=== PATIENT | female | born 1990 | race Caucasian/White ===

== ENCOUNTER 2017-07-11 13:25 | Emergency (ER) | payer SELFPAY ==
[2017-07-11 13:51] VITALS: BP 137/102; PULSE 97; RESP 14; TEMP 98.5; O2SAT 98
[2017-07-11] MEDS ORDERED: PROCHLORPERAZINE INJ 10 MG/2 ML VIAL IV PUSH ONE (14:00)
[2017-07-11] MEDS ORDERED: diphenhydrAMINE HCL 50 MG/ML VIAL IV PUSH ONE (14:00)
--- NOTE | 2017-07-11 14:20 | PD ---
HPI . Headache Chief Complaint: Headache Time Seen by Provider: 13:48 Travel History International Travel<30 days: No Contact w/Intl Traveler<30days: No Traveled to known affect area: No History of Present Illness HPI Patient presents with chief complaint of a headache. Onset was 3 weeks ago. She states that the head pain will be in various places depending upon the day. She describes it as a throbbing pain and rates it at 9/10. She states that her symptoms are minimally relieved with Tylenol and ibuprofen. She denies any associated symptoms such as fever, blurred vision, vomiting. There was nothing new or different about her head pain today that brought her to the hospital. PFSH Past Medical History Asthma: Yes Anxiety: Yes Depression: Yes Musculoskeletal: Yes (OA, bursitis) Thyroid Disease: Yes Influenza Vaccination: No ?: Not LMP: 07/02/2017 : 4 Para: 2 Past Surgical History Cholecystectomy: Yes Social History Alcohol Use: No Tobacco Use: Yes (06/23 ppd) Substance Use: No Allergies-Medications (Allergen,Severity, Reaction): Coded Allergies: fluoxetine (Verified Allergy, Severe, Swelling, 07/11/17) Reported Meds & Prescriptions Reported Meds & Active Scripts Active No Active Prescriptions or Reported Medications Review of Systems Except as stated in HPI: all other systems reviewed are Neg HENT: Positive: Headaches Physical Exam Narrative GENERAL: Awake and alert and in no acute distress. Using the FLACC behavioral pain scale, her pain level is 1/10. She grimaced when I palpated her scalp. SKIN: Warm and dry. HEAD: Normocephalic/atraumatic. Positive scalp tenderness. EYES: Pupils are equal. Extraocular movements are intact. NECK: Normal range of motion. Supple. CARDIOVASCULAR: Regular rate and rhythm. RESPIRATORY: Nonlabored respirations. MUSCULOSKELETAL: Atraumatic. NEUROLOGICAL: A and O 3. Cranial nerves II through XII are grossly intact. 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 Mmdwsm-npuc-maccae exam is intact bilaterally. PSYCHIATRIC: Appropriate mood and affect. Data Data Last Documented VS Vital Signs Date Time Temp Pulse Resp B/P (MAP) Pulse Ox O2 Delivery O2 Flow Rate FiO2 07/11/17 13:51 98.5 97 14 137/102 (114) 98 Room Air Orders Orders ^ Saline Lock (07/11/17 13:50) Diphenhydramine Inj (Benadryl Inj) (07/11/17 14:00) Prochlorperazine Inj (Compazine Inj) (07/11/17 14:00) MDM Medical Decision Making Medical Screen Exam Complete: Yes Emergency Medical Condition: Yes Differential Diagnosis Differential diagnosis of headache includes but is not limited to migraine, muscle contraction headache, brain tumor, brain bleed Narrative Course This patient presents with a 3 week history of headache. I will treat her with IV Compazine and Benadryl and then discharge her to home. She has no fever and no focal neurological findings. Diagnosis Primary Impression: Headache Qualified Codes: G44.229 - Chronic tension-type headache, not intractable Patient Instructions: Acute Headache (DC), General Instructions Scripts No Active Prescriptions or Reported Meds Disposition: 01 DISCHARGE HOME Condition: Stable Kenyatta Pulido MD Jul 11, 2017 14:20
== END 2017-07-11 14:30 | disposition home or self-care (01) ==
LOC: NEPD 13:25
DX: G44.229 Chronic tension-type headache, not intractable (principal); F32.9 Major depressive disorder, single episode, unspecified; F41.9 Anxiety disorder, unspecified; J45.909 Unspecified asthma, uncomplicated; M19.90 Unspecified osteoarthritis, unspecified site; F17.200 Nicotine dependence, unspecified, uncomplicated
CPT/HCPCS: 96374; 96375; 99284; J0780; J1200